=== PATIENT | male | born 1975 | race Caucasian/White ===

== ENCOUNTER 2017-12-14 17:14 | Emergency (ER) | payer OTHER ==
[~2017-12-14] VITALS: Ht 185.4 cm; Wt 92.2 kg
[~2017-12-14 17:14] MED LIST: CIPROFLOXACIN500 MG PO; LISINOPRIL20 MG PO; MAPAP325 MG PO; METRONIDAZOLE250 MG PO; PERCOCET 7.5-31 EACH PO
[2017-12-14] MEDS ORDERED: IBUPROFEN600 MG PO ×2 (18:16→18:18)
== END 2017-12-14 18:56 | disposition home or self-care (01) ==
LOC: ED 17:14
DX: S50.02XA Contusion of left elbow, initial encounter (principal); I10 Essential (primary) hypertension; Z88.0 Allergy status to penicillin; Z79.899 Other long term (current) drug therapy; W18.30XA Fall on same level, unspecified, initial encounter
CPT/HCPCS: 73080; 99283